=== PATIENT | male | born 1940 | race Caucasian/White ===

== ENCOUNTER 2023-02-05 19:14 | Emergency (ER) | payer MEDICARE, OTHER ==
[~2023-02-05] VITALS: Ht 165.1 cm; Wt 70.0 kg
[~2023-02-05 19:14] MED LIST: HYDR-4833; OME20GT; TRAM50TA2
[2023-02-05] MEDS ORDERED: OXYMETAZOLINE HCL 0.05 % NASAL SPRAY 15ML EACHNOSTRI ONE (19:45)
[2023-02-05] MEDS ORDERED: OXYMETAZOLINE HCL 0.05 % NASAL SPRAY 15ML ONE ×2 (19:56→21:45)
[2023-02-05 20:05] LABS: Basophils # (auto) 0.1 10 ^3/uL (0-0.2); Basophils % (auto) 1.2 % (0.0-2.0); Eosinophils # (auto) 0.2 10 ^3/uL (0-0.8); Eosinophils % (auto) 2.7 % (0.0-7.0); Hematocrit 39.3 % (41.0-53.0); Hemoglobin 13.1 g/dL (13.5-17.5); Lymphocytes # (auto) 1.6 10 ^3/uL (0.4-5.4); Lymphocytes % (auto) 19.9 % (10.0-50.0); Mean Corpuscular Hemoglobin 31.2 pg (28.0-32.0); Mean Corpuscular Hgb Conc. 33.3 g/dL (32.0-36.0); Mean Corpuscular Volume 93.6 fL (80.0-100.0); Monocytes # (auto) 0.7 10 ^3/uL (0-1.3); Monocytes % (auto) 8.2 % (0.0-12.0); Neutrophils # (auto) 5.6 10 ^3/uL (1.6-8.6); Red Cell Distribution Width 15.1 % (11.8-14.3); White Blood Cell 8.2 10^3/uL (4.4-10.8)
[2023-02-05] MEDS ORDERED: COCAINE HCL 4% TOP SOL 4ML TOP ONE (20:15)
[2023-02-05 20:19] LABS: Albumin 3.4 g/dL (3.4-5.0); Calcium 9.1 mg/dL (8.5-10.1); Magnesium 2.4 mg/dL (1.6-2.6)
[2023-02-05 20:22] LABS: BUN/Creatinine Ratio 14.7 (10.0-20.0); Bilirubin, Total 0.3 mg/dL (0.2-1.0); Total Protein 6.8 g/dL (6.4-8.2)
[2023-02-05 20:46] LABS: INR 0.99 (0.9-1.15)
[2023-02-05] MEDS: COCAINE HCL 4% TOP SOL 4ML TOP ONE (22:03)
[2023-02-06] MEDS: COCAINE HCL 4% TOP SOL 4ML TOP ONE (01:34)
[2023-02-06 06:06] VITALS: BP 114/78
== END 2023-02-06 06:12 | disposition home or self-care (01) ==
LOC: EDBD 19:14 → ER 19:14
DX: R04.0 Epistaxis (principal); D64.9 Anemia, unspecified; R73.9 Hyperglycemia, unspecified; J34.89 Other specified disorders of nose and nasal sinuses; Z79.899 Other long term (current) drug therapy; Z98.890 Other specified postprocedural states
CPT/HCPCS: 36415; 80053; 83735; 83880; 84484; 85025; 85610; 85730